=== PATIENT | female | born 1955 | race Hispanic/Latino ===

== ENCOUNTER → 2022-04-24 | Outpatient (CLI) | payer MEDICARE ==
[2022-04-24 15:19] LABS: CREATININE 1.6 mg/dL (0.5-1.5); POTASSIUM 4.4 mmol/L (3.5-5.1)
== END | disposition home or self-care (01) ==
LOC: LAB 11:58
PROVIDERS: ATTEND Surgery
DX: R10.9 Unspecified abdominal pain (principal)
CPT/HCPCS: 36415; 80048

== ENCOUNTER → 2022-04-29 | Outpatient (CLI) | payer MEDICARE ==
[~2022-04-29] MED LIST: IOHEXOL 350 MG/ML 100ML INFUS..BTL IV ONE
== END | disposition home or self-care (01) ==
LOC: RAH 08:30
PROVIDERS: ATTEND Surgery
DX: R10.9 Unspecified abdominal pain (principal); K57.90 Diverticulosis of intestine, part unspecified, without perforation or abscess without bleeding
CPT/HCPCS: 74177; Q9967

== ENCOUNTER → 2023-07-24 | Outpatient (CLI) | payer OTHER, MEDICARE ==
[~2023-07-24] VITALS: Ht 160 cm; Wt 95.3 kg
[~2023-07-24] MED LIST changes: +0.9%NACL 1000ML 1,000 ML IV ONE; +ALBU6.7H14 IH; +ATEN50TA PO; +ATOR40TA71 PO; +BENZ-226 PO; +BUPIVACAINE/PF 0.5% 30ML VIAL ONE; +CEFAZOLIN SODIUM 1 GM VIAL IVPB PRN; +DAPA10TA PO; +FERR-72 PO; +FLUT15.845 NS; -IOHEXOL 350 MG/ML 100ML INFUS..BTL IV ONE; +LEVO75CA5 PO; +LISI1TAB51 PO; +MONT-39 PO; +SEMA2PEN SQ; +TRAM50TA4 PO; +ZOLP10TA2 PO
[2023-07-24 15:42] LABS: BASOPHILS # (AUTO) 0.03 K/uL (0.00-0.20); BASOPHILS % (AUTO) 0.5 % (0.0-5.0); EOSINOPHILS # (AUTO) 0.15 K/uL (0.00-0.70); EOSINOPHILS % (AUTO) 2.3 % (0.0-8.0); HEMATOCRIT 35.4 % (36-48); IMMATURE GRANULOCYTE ABSOLUTE 0.05 K/uL (0-1); LYMPHOCYTES # (AUTO) 1.9 K/uL (1.0-4.8); LYMPHOCYTES % (AUTO) 29.3 % (21.0-51.0); MEAN CORPUSCULAR HEMOGLOBIN 31.5 pg (27.0-33.0); MEAN CORPUSCULAR HGB CONC 33.6 g/dL (32.0-36.0); MEAN CORPUSCULAR VOLUME 93.7 fL (79-99); MONOCYTES # (AUTO) 0.6 K/uL (0.1-1.0); NEUTROPHILS # (AUTO) 3.8 K/uL (1.8-7.7); NEUTROPHILS % (AUTO) 58.1 % (40.0-77.0); PLATELET COUNT (AUTO) 245 K/uL (130-400); RED BLOOD CELL COUNT(AUTO) 3.78 MIL/uL (4.00-5.50); RED CELL DISTRIBUTION WIDTH 13.2 % (11.0-15.5); WHITE BLOOD COUNT (AUTO) 6.5 K/uL (4.8-10.8)
[2023-07-24 15:52] LABS: CREATININE 2.1 mg/dL (0.5-1.5); POTASSIUM 5.2 mmol/L (3.5-5.1)
[2023-07-24 15:55] LABS: INR <= 0.93 (0.85-1.15); PROTHROMBIN TIME 10.4 SEC (9.6-11.6)
[2023-07-24 15:57] LABS: PARTIAL THROMBOPLASTIN TIME 25.2 SEC (26.3-35.5)
[2023-07-24 17:07] VITALS: BP 150/80; PULSE 75; RESP 15
[2023-07-27 07:33] VITALS: BP 110/80; PULSE 75; RESP 15
[2023-07-27] MEDS: CEFAZOLIN SODIUM 2 GM VIAL ONE (08:23)
[2023-07-27] MEDS: 0.9%NACL 1000ML 1,000 ML IV ONE (08:24)
== END | disposition home or self-care (01) ==
LOC: EDSTATUS 15:00 → DAH 15:19 → EDSTATUS 07-27 15:00
PROVIDERS: ATTEND Surgery
DX: Z01.818 Encounter for other preprocedural examination (principal); K43.2 Incisional hernia without obstruction or gangrene; I10 Essential (primary) hypertension; E03.9 Hypothyroidism, unspecified; F41.9 Anxiety disorder, unspecified; J45.909 Unspecified asthma, uncomplicated; Z53.8 Procedure and treatment not carried out for other reasons; Z98.84 Bariatric surgery status; Z98.891 History of uterine scar from previous surgery; Z98.890 Other specified postprocedural states; Z82.49 Family history of ischemic heart disease and other diseases of the circulatory system; Z90.49 Acquired absence of other specified parts of digestive tract; Z79.890 Hormone replacement therapy; Z79.899 Other long term (current) drug therapy; Z79.01 Long term (current) use of anticoagulants
CPT/HCPCS: 93005; 84132; 80048; 85025; 85610; 85730; 82948; 36415; A6260

== ENCOUNTER 2023-08-07 14:00 | Inpatient (IN) | payer OTHER, MEDICARE ==
[~2023-08-07] VITALS: Ht 160 cm; Wt 95.3 kg
[~2023-08-07 14:00] MED LIST changes: -0.9%NACL 1000ML 1,000 ML IV ONE; -BUPIVACAINE/PF 0.5% 30ML VIAL ONE; -CEFAZOLIN SODIUM 1 GM VIAL IVPB PRN
[2023-08-07 16:14] VITALS: BP 150/80; PULSE 75; RESP 15
[2023-08-10] VITALS (26 sets, daily range): BP systolic 94–151; BP diastolic 49–91; PULSE 56–95; RESP 16–23; O2SAT 97–100
[2023-08-10] MEDS: CEFAZOLIN SODIUM 2 GM VIAL ONE (08:05)
[2023-08-10] MEDS ORDERED: LEVO75TA4 PO (08:43)
[2023-08-10] MEDS: 0.9%NACL 1000ML 1,000 ML IV ONE (08:57)
[2023-08-10] MEDS ORDERED: LIDOCAINE PF 100MG/5ML (2%) SYRINGE 5ML ONE (09:42)
[2023-08-10] MEDS ORDERED: FENTANYL CITRATE PF 50 MCG/1 ML 2ML VIAL ONE (09:43)
[2023-08-10] MEDS ORDERED: MIDAZOLAM HCL 1 MG/ML 2ML VIAL ONE (09:43)
[2023-08-10] MEDS ORDERED: ROCURONIUM BROMIDE 10MG/1ML 5ML VL ONE (09:43)
[2023-08-10] MEDS ORDERED: PROPOFOL 10 MG/ML 20ML VIAL IV ONE (09:43)
[2023-08-10] MEDS ORDERED: ROPIVACAINE 0.5% 5MG/ML 30ML ONE (10:38)
[2023-08-10] MEDS ORDERED: EPHEDRINE SULFATE 50 MG/ML AMPULE ONE (11:01)
[2023-08-10] MEDS ORDERED: NEOSTIGMINE METHYLSULFATE 1MG/ML IV ONE (11:35)
[2023-08-10] MEDS ORDERED: GLYCOPYRROLATE 0.2 MG/ML 5 ML VIAL ONE (11:35)
[2023-08-10] MEDS: MEPERIDINE-PF 25 MG/ML SYG ONE (12:12)
[2023-08-10] MEDS: ONDANSETRON 4MG INJ ONE (12:12)
[2023-08-10] MEDS: KETOROLAC 30MG VIAL (30MG/ML) ONE (12:28)
[2023-08-10] MEDS ORDERED: CEFAZOLIN SODIUM 2 GM VIAL IVPB SCH (13:30)
[2023-08-10] MEDS ORDERED: HYDRALAZINE 20MG/ML VIAL IV PRN (13:30)
[2023-08-10] MEDS: MORPHINE 4 MG SYG IVP PRN (13:36)
[2023-08-10] MEDS: LACTATED RINGERS 1000ML 1,000 ML IV SCH (13:36)
[2023-08-10] MEDS ORDERED: ALBUTEROL 0.083% 2.5 MG/3 ML INH IH PRN (16:00)
[2023-08-10] MEDS ORDERED: FLUTICASONE PROPIONATE 50MCG/SPRAY 16 GM BOTTLE EN PRN (16:30)
[2023-08-10] MEDS: CEFAZOLIN SODIUM 2 GM VIAL IVPB SCH (17:51)
[2023-08-10] MEDS: ATORVASTATIN 40 MG TABLET PO SCH (20:11)
[2023-08-10] MEDS: ATENOLOL 50 MG TABLET PO SCH (20:11)
[2023-08-10] MEDS ORDERED: NON-FORMULARY MEDICATION 1 EACH (Zolpidem Tartrate (Ambien) 10 MG) PO SCH (21:00)
[2023-08-10] MEDS: KETOROLAC 15MG/ML VIAL (15MG/ML) IV PRN (23:03)
[2023-08-10] MEDS ORDERED: TRAMADOL HCL 50 MG TABLET PO PRN (23:30)
[2023-08-10] MEDS ORDERED: BENZONATATE 100 MG CAPSULE PO PRN (23:30)
[2023-08-10] MEDS ORDERED: (Semaglutide (Ozempic) 0.5 MG) SQ SCH (23:30)
[2023-08-10] MEDS: ACETAMINOPHEN 325 MG TAB PO PRN (23:40)
[2023-08-11] VITALS (15 sets, daily range): BP systolic 107–135; BP diastolic 48–72; PULSE 82–100; RESP 14–22; TEMP 101.4; O2SAT 94–98
[2023-08-11] MEDS: ALBUTEROL 0.083% 2.5 MG/3 ML INH IH SCH
[2023-08-11] MEDS: ZOLPIDEM TARTRATE 5 MG TAB PO ONE (00:05)
[2023-08-11] MEDS: LEVOTHYROXINE 75 MCG TABLET PO SCH (05:48)
[2023-08-11 06:55] LABS: MEAN CORPUSCULAR HEMOGLOBIN 31.1 pg (27.0-33.0); MEAN CORPUSCULAR HGB CONC 32.7 g/dL (32.0-36.0); MEAN CORPUSCULAR VOLUME 95.2 fL (79-99); PLATELET COUNT (AUTO) 182 K/uL (130-400); RED BLOOD CELL COUNT(AUTO) 3.15 MIL/uL (4.00-5.50); RED CELL DISTRIBUTION WIDTH 13.6 % (11.0-15.5); WHITE BLOOD COUNT (AUTO) 10.4 K/uL (4.8-10.8)
[2023-08-11 07:05] LABS: CREATININE 1.8 mg/dL (0.5-1.5); POTASSIUM 4.5 mmol/L (3.5-5.1)
[2023-08-11] MEDS: FERROUS SULFATE 325 MG TABLET.DR PO SCH (08:37)
[2023-08-11 08:45] LABS: BAND NEUTROPHILS % (MANUAL) 7 % (0-2); BASOPHILS % (MANUAL) 1 % (0-2); LYMPHOCYTES % (MANUAL) 7 % (22-44); MAN.DIFF COMMENT-IMPRESSION MANUAL DIFFERENTIAL; MONOCYTES % (MANUAL) 2 % (2-9); PLATELET MORPHOLOGY COMMENT ADEQUATE; SEGMENTED NEUTROPHILS % 83 % (40-70); TOTAL CELLS COUNTED 100
[2023-08-11] MEDS: HYDROCHLOROTHIAZIDE 25 MG TABLET PO SCH (09:00)
[2023-08-11] MEDS: LISINOPRIL 20 MG TABLET PO SCH (09:00)
[2023-08-11] MEDS ORDERED: NON-FORMULARY MEDICATION 1 EACH (Lisinopril/Hydrochlorothiazide (Lisinopril-Hctz 20-12.5 m PO SCH (09:00)
[2023-08-11] MEDS: (Dapagliflozin Propanediol (Farxiga) 10 MG) PO SCH (09:59)
[2023-08-11] MEDS: ZOSYN 3.375GM +NS 50ML IV SCH (20:17)
[2023-08-11] MEDS: ONDANSETRON 4MG INJ IVP PRN (20:17)
[2023-08-11] MEDS: ZOLPIDEM TARTRATE 5 MG TAB PO SCH (20:47)
[2023-08-12] VITALS (11 sets, daily range): BP systolic 91–125; BP diastolic 45–64; PULSE 86–102; RESP 16–19; O2SAT 93–99
[2023-08-12] MEDS ORDERED: ACETAMINOPHEN WITH CODEINE 1 TAB TAB PO PRN (08:00)
[2023-08-12] MEDS: PANTOPRAZOLE 40 MG/VIAL IVP SCH (09:41)
[2023-08-12] MEDS: ZOSYN 3.375GM +NS 50ML IV SCH (22:49)
[2023-08-13 04:20] VITALS: BP 95/44; PULSE 85; RESP 19
[2023-08-13] MEDS: TRAMADOL HCL 50 MG TABLET PO PRN (06:02)
[2023-08-13 07:00] VITALS: BP 91/65; PULSE 91; RESP 20
[2023-08-13 07:17] VITALS: RESP 16; O2SAT 96
[2023-08-13 07:20] VITALS: PULSE 88; RESP 18
[2023-08-13 07:52] VITALS: BP 91/65; PULSE 88
[2023-08-13 09:30] VITALS: O2SAT 97
== END 2023-08-13 11:10 | disposition home or self-care (01) | DRG 337 ==
LOC: UNDOADMIN 08-10 07:47 → WSH 08-10 07:47 → DAHIP 08-10 07:47
PROVIDERS: ADMIT Surgery; ATTEND Surgery
PROC: 0DN80ZZ Release Small Intestine, Open Approach (ICD-10-PCS; principal; 2023-08-10 10:15)
PROC: 0WQF0ZZ Repair Abdominal Wall, Open Approach (ICD-10-PCS; 2023-08-10 10:15)
DX: K43.2 Incisional hernia without obstruction or gangrene (principal); K46.9 Unspecified abdominal hernia without obstruction or gangrene; K66.0 Peritoneal adhesions (postprocedural) (postinfection)
CPT/HCPCS: 36415; 80048; 82948; 85025; 94640; C9113; G0378; J1885; J2001; J2175; J2250; J2270; J2405; J2543; J2704; J2710; J2795; J3010; J3490; J7030; J7120; A4213; A4215; A4221; A4222; A4223; A4452; A4600; A4649; A4663; A4930; J0690

== ENCOUNTER → 2025-03-28 | Outpatient (CLI) | payer OTHER, MEDICAID ==
[~2025-03-28] MED LIST changes: -BENZ-226 PO; +BROM118S48 PO; -FERR-72 PO; -FLUT15.845 NS; -LEVO75CA5 PO; +LEVO88TA4 PO; +MELA5CAP PO; -TRAM50TA4 PO; +TRAZ-185 PO; -ZOLP10TA2 PO; +[UNRECOGNIZED DRUG - CODE] PO
== END | disposition home or self-care (01) ==
LOC: RAH 10:44
PROVIDERS: ATTEND Family Medicine
DX: Z12.31 Encounter for screening mammogram for malignant neoplasm of breast (principal)
CPT/HCPCS: 77067

== ENCOUNTER → 2025-05-23 | Outpatient (CLI) | payer OTHER, MEDICAID ==
[2025-05-23 12:52] LABS: CREATININE 1.3 mg/dL (0.5-1.0); GLOMERULAR FILTR. RATE CALC 44.0 mL/min (>90); UREA NITROGEN, BLOOD 32.0 mg/dL (7-18)
== END | disposition home or self-care (01) ==
LOC: LAB 11:55
PROVIDERS: ATTEND Surgery
DX: R10.9 Unspecified abdominal pain (principal)
CPT/HCPCS: 36415; 82565; 84520